=== PATIENT | female | born 1985 | race African-American/Black ===

== ENCOUNTER 2016-08-15 10:51 | Emergency (ER) | payer BC ==
[~2016-08-15] VITALS: Ht 182.9 cm; Wt 178.7 kg
[~2016-08-15 10:51] MED LIST: ALBU2.5V5 NEB; ATEN1TAB3 PO; BENZ100C PO; DICY10CA3 PO; DICY10CA53 PO; DOXY100T PO; GABA-586 PO; HYDR-971 PO; HYDR12.53 PO; HYDR50TA6 PO; IBUP800T2 PO; LOSA50TA6 PO; METO100T2 PO; MONT10TA9 PO; ONDA4TAB10 PO; OTHER; OXYC10TA PO; PANT40TA3 PO; PHEN37.53 PO; POTA20TA4 PO; PRED-220 PO; PRED50TA PO; PROAIR HFA8.5 GM INH; PROM25TA10 PO; TIZA4TAB PO; TRAM50TA PO; [UNRECOGNIZED DRUG - CODE] RC; [UNRECOGNIZED DRUG - OTHER]
[2016-08-15 11:26] LABS: NEG OBC UR NEG; POS OBC UR POS
[2016-08-15] MEDS ORDERED: IV NORMAL SALINE 1000ML BAG 1,000 ML IV SCH (11:59)
[2016-08-15] MEDS ORDERED: KETOROLAC TROMETHAMINE 30 MG/ML INJ. IV ONE (12:00)
[2016-08-15 12:17] LABS: BASO % 1 % (0-3); EOS % 2 % (0-3); HEMATOCRIT 44.3 % (36.0-47.0); HEMOGLOBIN 14.7 g/dL (12.0-15.5); LYMPH # 1.6 x10^3/uL (1.0-4.8); LYMPH % 26 % (24-48); MEAN CORPUSCULAR HEMOGLOBIN 29 pg (25-35); MEAN CORPUSCULAR HGB CONC 33 g/dL (31-37); MEAN CORPUSCULAR VOLUME 87 fL (79-100); MONO % 7 % (0-9); NEUT % 64 % (31-73); PLATELET COUNT 335 x10^3/uL (140-400); RED BLOOD COUNT 5.08 x10^6/uL (3.50-5.40); RED CELL DISTRIBUTION WIDTH 14.1 % (11.5-14.5); WHITE BLOOD COUNT 6.2 x10^3/uL (4.0-11.0)
[2016-08-15 12:22] VITALS: BP 127/70
[2016-08-15 12:27] LABS: CALCIUM 9.5 mg/dL (8.5-10.1); CREATININE 0.8 mg/dL (0.6-1.0); GFR 102.6
[2016-08-15 12:33] LABS: ALBUMIN 3.7 g/dL (3.4-5.0); ALBUMIN/GLOBULIN RATIO 0.9 (1.0-1.7); TOTAL BILIRUBIN 0.3 mg/dL (0.2-1.0); TOTAL PROTEIN 7.9 g/dL (6.4-8.2)
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
[2016-08-15] MEDS ORDERED: HYDROcodone/APAP 5/325MG 1 TAB TABLET PO ONE (14:15)
[2016-08-15] MEDS ORDERED: ONDA8TAB12 PO (14:28)
[2016-08-15] MEDS ORDERED: ONDANSETRON ODT 4 MG TAB.RAPDIS. PO ONE (14:30)
== END 2016-08-15 14:23 | disposition home or self-care (01) ==
LOC: ER 10:51
DX: B34.9 Viral infection, unspecified (principal); R51 Headache; M54.9 Dorsalgia, unspecified; J45.909 Unspecified asthma, uncomplicated; I10 Essential (primary) hypertension; K58.9 Irritable bowel syndrome, unspecified; Z87.01 Personal history of pneumonia (recurrent); Z90.49 Acquired absence of other specified parts of digestive tract; Z88.2 Allergy status to sulfonamides; Z88.1 Allergy status to other antibiotic agents; Z88.8 Allergy status to other drugs, medicaments and biological substances
CPT/HCPCS: 36415; 80053; 81025; 85027; 96361; 96374; 99284; J1885; J7030

== ENCOUNTER 2016-11-14 07:29 | Emergency (ER) | payer BC ==
[~2016-11-14] VITALS: Ht 182.9 cm; Wt 178.7 kg
[~2016-11-14 07:29] MED LIST changes: +IBUP800T19 PO; -IBUP800T2 PO; +ONDA8TAB12 PO
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
[2016-11-14 07:50] VITALS: BP 151/101
[2016-11-14 07:52] LABS: BILIRUBIN,URINE NEGATIVE (NEG); GLUCOSE,URINE NEGATIVE (NEG); NITRITE,URINE NEGATIVE (NEG); PROTEIN,URINE NEGATIVE (NEG-TRACE); UROBILINOGEN,URINE 0.2 mg/dL (0.2 mg/dL)
[2016-11-14] MEDS ORDERED: MORPHINE SULFATE 10 MG/ML VIAL. IV ONE (08:00)
[2016-11-14] MEDS ORDERED: KETOROLAC TROMETHAMINE 30 MG/ML INJ. IV ONE (08:00)
[2016-11-14] MEDS ORDERED: ONDANSETRON PF 4 MG/2 ML VIAL. IV ONE (08:00)
[2016-11-14] MEDS ORDERED: IV NORMAL SALINE 1000ML BAG 1,000 ML IV ONE (08:00)
[2016-11-14 08:08] LABS: BASO # 0.1 x10^3/uL (0.0-0.2); BASO % 1 % (0-3); EOS % 2 % (0-3); HEMATOCRIT 43.3 % (36.0-47.0); HEMOGLOBIN 14.8 g/dL (12.0-15.5); LYMPH # 2.1 x10^3/uL (1.0-4.8); LYMPH % 30 % (24-48); MEAN CORPUSCULAR HEMOGLOBIN 30 pg (25-35); MEAN CORPUSCULAR HGB CONC 34 g/dL (31-37); MEAN CORPUSCULAR VOLUME 86 fL (79-100); MONO % 7 % (0-9); NEUT % 60 % (31-73); PLATELET COUNT 339 x10^3/uL (140-400); RED BLOOD COUNT 5.01 x10^6/uL (3.50-5.40); RED CELL DISTRIBUTION WIDTH 13.2 % (11.5-14.5)
[2016-11-14 08:14] LABS: BACTERIA,URINE MANY /HPF (0-FEW); SQUAMOUS EPITHELIAL CELL,UR MANY /LPF
[2016-11-14 08:20] LABS: CALCIUM 9.6 mg/dL (8.5-10.1); CREATININE 0.7 mg/dL (0.6-1.0); GFR 119.7; POTASSIUM 3.9 mmol/L (3.5-5.1)
[2016-11-14 08:23] LABS: ALBUMIN 3.7 g/dL (3.4-5.0); ALBUMIN/GLOBULIN RATIO 0.9 (1.0-1.7); TOTAL BILIRUBIN 0.1 mg/dL (0.2-1.0); TOTAL PROTEIN 7.7 g/dL (6.4-8.2)
--- NOTE | 2016-11-14 08:39 | RAD ---
Exam performed: CT scan of the abdomen and pelvis without contrast. Clinical Indication: Left flank pain. Date of Service: 11/14/16 03/25/16 Technique: Contiguous helical acquisitions are obtained through the abdomen and pelvis without IV contrast. Sagittal and coronal reformatted images are obtained and reviewed. CT abdomen and pelvis findings: The lung bases are essentially clear. Visualized heart is normal. Lack of IV contrast limits evaluation of abdominal viscera, however the liver , spleen and pancreas are normal. Both adrenal glands and bilateral kidneys are normal in size without hydronephrosis or nephrolithiasis. Aorta is normal in caliber without aneurysm. The small and large bowel loops are nondilated and unremarkable. Scattered stool in the colon. Small ventral abdominal wall defect in the anterior abdominal wall containing omental fat. The visualized portion of the appendix is unremarkable. Majority changes are seen in the right lower quadrant Distal ureters are nondilated. Urinary bladder is decompressed and thick walled. [Uterus is anteverted. Tiny 2.3 cm cyst in the left ovary probably physiological.] No free or focal fluid collections are identified. Degenerative disc disease at L5-S1 Impression: 1. No acute intra-abdominal or pelvic process detected. No evidence of urolithiasis. 2. Status post cholecystectomy. 3. Small ventral abdominal wall defect in the anterior abdominal wall containing omental fat. PQRS Compliance Statement: One or more of the following individualized dose reduction techniques were utilized for this examination: 1. Automated exposure control 2. Adjustment of the mA and/or kV according to patient size 3. Use of iterative reconstruction technique
== END 2016-11-14 09:24 | disposition home or self-care (01) ==
LOC: ER 07:29
DX: G89.29 Other chronic pain (principal); M54.5 Low back pain; M54.2 Cervicalgia; I12.9 Hypertensive chronic kidney disease with stage 1 through stage 4 chronic kidney disease, or unspecified chronic kidney disease; N18.9 Chronic kidney disease, unspecified; J45.909 Unspecified asthma, uncomplicated; Z90.49 Acquired absence of other specified parts of digestive tract; K58.9 Irritable bowel syndrome, unspecified; Z87.440 Personal history of urinary (tract) infections; Z98.890 Other specified postprocedural states; Z88.2 Allergy status to sulfonamides; Z88.1 Allergy status to other antibiotic agents; Z88.8 Allergy status to other drugs, medicaments and biological substances
CPT/HCPCS: 36415; 74176; 80053; 81001; 81025; 83690; 85025; 87086; 96361; 96374; 96375; 99285; J1885; J2270; J2405; J7030

== ENCOUNTER 2017-02-04 06:38 | Inpatient (IN) | payer BC ==
[~2017-02-04] VITALS: Ht 182.9 cm; Wt 182.3 kg
--- NOTE | 2017-02-04 07:03 | PHYS DOC ---
Past Medical History Past Medical History: Asthma, Bronchitis, Hypertension, IBS, Pneumonia, Renal Failure, Urolithiasis, UTI, Other Additional Past Medical Histor: BACK PAIN Past Surgical History: Cholecystectomy, , Tonsillectomy, Other Additional Past Surgical Histo: adenoidectomy Alcohol Use: None Drug Use: None Adult General Chief Complaint Chief Complaint: Chest pain [facility] HPI Patient is a 31 year old -Algerian female and he was who presents with left-sided chest pain, shortness of breath. She states he symptoms started partially 5 days ago with her shortness of breath with a nonproductive cough and wheezing and she's been in her breathing treatments. She states yesterday around 6:30 PM she started coughing very hard and then had a pain in her left chest wall and points under her left breast and says it hurts a 7 out of 10 constantly and if she lays on or takes a deep breath it hurts a 10 out of 10. She states nothing makes the pain better from the 7 out of 10 laying still not putting pressure taking deep breaths keeps it from going to a 10 out of 10. She denies she's taken anything to help with her pain as of yet. She has been taking an [id number] cough suppressant and states she's been using her nebulizer every 4 hours. She states she can't lay flat because it makes her cough too much and she gets short of breath. She states she becomes very sweaty and short of breath with short distances of ambulation. She states she has a history of asthma and can't get into see her primary care physician until next week. She has a family history of heart disease but is unfamiliar with exactly what since her dad has a pacemaker and mom and dad both had coronary cast but unsure of the results and her brother last week at the age of 40 had a cardiac catheter. She denies a history of diabetes and states she's has high blood pressure and is on blood pressure medicine. She denies a history of smoking. Review of Systems Review of Systems Constitutional: Denies fever or chills [] Eyes: Denies change in visual acuity, redness, or eye pain [] HENT: Denies nasal congestion or sore throat [] Respiratory: As it for nonproductive cough and wheezing. Cardiovascular: No additional information not addressed in HPI [] GI: Denies abdominal pain, nausea, vomiting, bloody stools or diarrhea [] : Denies dysuria or hematuria [] Musculoskeletal: Denies back pain or joint pain [] Integument: Denies rash or skin lesions [] Neurologic: Denies headache, focal weakness or sensory changes [] Endocrine: Denies polyuria or polydipsia [] All other systems were reviewed and found to be within normal limits, except as documented in this note. Current Medications Current Medications Current Medications Medications (Trade) Dose Ordered Sig/Arturo Start Time Stop Time Status Last Admin Dose Admin Albuterol/ Ipratropium (Duoneb) 3 ml Q6HRS PRN 02/04/17 09:45 UNV Aspirin (Milka Aspirin) 325 mg 1X ONCE 02/04/17 09:45 02/04/17 09:46 UNV Methylprednisolone Sodium Succinate (SOLU-Medrol 125MG VIAL) 125 mg 1X ONCE 02/04/17 07:45 02/04/17 07:46 DC 02/04/17 07:53 125 MG Morphine Sulfate 2 mg PRN Q2HR PRN 02/04/17 09:45 02/05/17 09:44 Ondansetron HCl (Zofran) 4 mg PRN Q8HRS PRN 02/04/17 09:45 02/05/17 09:44 Allergies Allergies Allergies Coded Allergies Type Severity Reaction Last Updated Verified loperamide Allergy Severe rash, tongue swelling 11/14/16 Yes Sulfa (Sulfonamide Antibiotics) Allergy Intermediate Hives 11/14/16 Yes amoxicillin Allergy Intermediate Hives 11/14/16 Yes vancomycin Allergy Intermediate Hives 11/14/16 Yes Physical Exam Physical Exam Constitutional: Well developed, well nourished, no acute distress, non-toxic appearance. [] HENT: Normocephalic, atraumatic, bilateral external ears normal, oropharynx moist, no oral exudates, nose normal. [] Eyes: PERRLA, EOMI, conjunctiva normal, no discharge. [] Neck: Normal range of motion, no tenderness, supple, no stridor. [] Cardiovascular:Heart rate regular rhythm, no murmur [] Lungs & Thorax: Bilateral breath sounds decreased at the bases with mild wheezing in the right hemithorax, tender to palpation under the left breast without any obvious deformities noted, no rashes appreciated Abdomen: Bowel sounds normal, soft, no tenderness, no masses, no pulsatile masses. [] Skin: Warm, dry, no erythema, no rash. [] Back: No tenderness, no CVA tenderness. [] Extremities: No tenderness, no cyanosis, no clubbing, ROM intact, no edema. [] Neurologic: Alert and oriented X 3, normal motor function, normal sensory function, no focal deficits noted. [] Psychologic: Affect normal, judgement normal, mood normal. [] Current Patient Data Vital Signs Vital Signs Date Time Temp Pulse Resp B/P (MAP) Pulse Ox O2 Delivery O2 Flow Rate FiO2 02/04/17 09:39 22 02/04/17 09:20 98 117/74 (88) 97 Room Air 02/04/17 06:52 98.0 98.0 Lab Values Laboratory Tests Test 02/04/17 06:40 02/04/17 07:40 02/04/17 07:47 Urine Collection Type Unknown Urine Color Yellow Urine Clarity Cloudy Urine pH 6.0 Urine Specific [place] >=1.030 Urine Protein Negative mg/dL (NEG-TRACE) Urine Glucose (UA) Negative mg/dL (NEG) Urine Ketones (Stick) Negative mg/dL (NEG) Urine Blood Small (NEG) Urine Nitrite Negative (NEG) Urine Bilirubin Negative (NEG) Urine Urobilinogen Dipstick 0.2 mg/dL (0.2 mg/dL) Urine Leukocyte Esterase Negative (NEG) Urine RBC 0 /HPF (0-2) Urine WBC Occ /HPF (0-4) Urine Squamous Epithelial Cells Many /LPF Urine Bacteria Many /HPF (0-FEW) Urine Mucus Slight /LPF White Blood Count 6.4 x10^3/uL (4.0-11.0) Red Blood Count 5.10 x10^6/uL (3.50-5.40) Hemoglobin 14.7 g/dL (12.0-15.5) Hematocrit 44.5 % (36.0-47.0) Mean Corpuscular Volume 87 fL (79-100) Mean Corpuscular Hemoglobin 29 pg (25-35) Mean Corpuscular Hemoglobin Concent 33 g/dL (31-37) Red Cell Distribution Width 13.8 % (11.5-14.5) Platelet Count 330 x10^3/uL (140-400) Neutrophils (%) (Auto) 55 % (31-73) Lymphocytes (%) (Auto) 34 % (24-48) Monocytes (%) (Auto) 8 % (0-9) Eosinophils (%) (Auto) 2 % (0-3) Basophils (%) (Auto) 1 % (0-3) Neutrophils # (Auto) 3.6 x10^3uL (1.8-7.7) Lymphocytes # (Auto) 2.2 x10^3/uL (1.0-4.8) Monocytes # (Auto) 0.5 x10^3/uL (0.0-1.1) Eosinophils # (Auto) 0.1 x10^3/uL (0.0-0.7) Basophils # (Auto) 0.1 x10^3/uL (0.0-0.2) Prothrombin Time 12.3 SEC (11.7-14.0) Prothrombin Time INR 1.0 (0.8-1.1) D-Dimer (Anna) 0.62 ug/mlFEU (0.00-0.50) H Sodium Level 140 mmol/L (136-145) Potassium Level 3.7 mmol/L (3.5-5.1) Chloride Level 103 mmol/L (98-107) Carbon Dioxide Level 24 mmol/L (21-32) Anion Gap 13 (6-14) Blood Urea Nitrogen 12 mg/dL (7-20) Creatinine 0.8 mg/dL (0.6-1.0) Estimated GFR (Cockcroft-Gault) 101.9 Glucose Level 96 mg/dL (70-99) Calcium Level 9.5 mg/dL (8.5-10.1) Magnesium Level 1.9 mg/dL (1.8-2.4) Total Bilirubin 0.2 mg/dL (0.2-1.0) Direct Bilirubin < 0.1 mg/dL (0.0-0.2) Aspartate Amino Transferase (AST) 26 U/L (15-37) Alanine Aminotransferase (ALT) 26 U/L (14-59) Alkaline Phosphatase 62 U/L (46-116) Creatine Kinase 639 U/L (26-192) H Creatine Kinase MB (Mass) 9.1 ng/mL (0.0-3.6) H Creatine Kinase MB Relative Index 1.4 % (0-4) Troponin I Quantitative < 0.017 ng/mL (0.000-0.055) JQ-Oky-I-Type Natriuretic Peptide 14 pg/mL (0-124) Total Protein 8.0 g/dL (6.4-8.2) Albumin 3.8 g/dL (3.4-5.0) Lipase 94 U/L (73-393) Thyroid Stimulating Hormone (TSH) 0.821 uIU/mL (0.358-3.74) POC Urine HCG, Qualitative Hcg negative (Negative) Laboratory Tests 02/04/17 07:40 Laboratory Tests 02/04/17 07:40 EKG EKG EKG shows sinus rhythm with rate of 98 bpm with T-wave inversions located in lead 3, less than 1 mm elevation noted in V2 V3, no reciprocal is noted, normal axis, QTC 451 ms, EKG similar to one performed on February 01, 2016 except for it had T-wave inversions in aVF in addition. As interpreted by me. Radiology/Procedures Radiology/Procedures [facility] [address] [place] [address] IMAGING REPORT Signed PATIENT: JUSTINA CORBETT ACCOUNT: [id number] : 1985 LOCATION: ER AGE: 31 SEX: F EXAM STATUS: REG ER ORD. PHYSICIAN: KOFI WAGNER MD REASON: soa PROCEDURE: PORTABLE CHEST 1V AP PORTABLE CHEST Clinical Indication: soa. Comparison: AP chest 02/01/2016. Findings: The cardiomediastinal silhouette is normal. Lungs are clear. There is no pneumothorax. No pleural effusion is appreciated. There is no acute bone abnormality. IMPRESSION: No acute cardiopulmonary process. DICTATED and SIGNED BY: RANDY CARDENAS MD DATE: 02/04/17 7243 CC: KOFI WAGNER MD; Lore ERICKSON MD ~ Impressions: Chest discomfort Shortness of breath Asthma Obesity Hypertension Course & Med Decision Making Course & Med Decision Making Pertinent Labs and Imaging studies reviewed. (See chart for details) Chest x-ray does not show any acute abnormality's. She felt better after IV Solu -Medrol and DuoNeb nebs. EKG shows T-wave inversions in lead 3, this is similar to before. I do not appreciate any ecchymosis or abnormalities over her left side of her chest. D-dimer was pending at the time I spoke with Dr. Lai. I spoke with Dr. Lai is agreed to admit the patient. Since the d-dimer came back elevated after I spoke with Dr. Lai I have ordered a CT angiogram to rule out a PE. Patient's in stable condition at this time being transferred the floor. I have informed Dr. Lai of EKG findings, chest x-ray, labs and physical exam. I have ordered an aspirin for the patient. Dragon Disclaimer Dragon Disclaimer This electronic medical record was generated, in whole or in part, using a voice recognition dictation system. Departure Departure Impression: Primary Impression: Asthma exacerbation Additional Impression: Chest pain Disposition: ADMITTED INPATIENT Admitting Physician: Camilla Ayala Condition: STABLE Referrals: Lore ERICKSON MD (PCP) Problem Qualifiers KOFI WAGNER MD Feb 04, 2017 07:03
[2017-02-04] MEDS ORDERED: methylPREDNISolone SOD SUCC PF 125 MG/2 ML VIAL. IV ONE (07:45)
[2017-02-04] MEDS ORDERED: IPRATRPIUM/ALBUTEROL 0.5/2.5MG 3 ML NEBU. NEB ONE ×2 (07:45→10:30)
--- NOTE | 2017-02-04 07:46 | RAD ---
AP PORTABLE CHEST Clinical Indication: soa. Comparison: AP chest 02/01/2016. Findings: The cardiomediastinal silhouette is normal. Lungs are clear. There is no pneumothorax. No pleural effusion is appreciated. There is no acute bone abnormality. IMPRESSION: No acute cardiopulmonary process.
--- NOTE | 2017-02-04 07:47 | EKG ---
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
[2017-02-04] MEDS: MORPHINE SULFATE 2 MG/ML DISP.SYRIN. IV/SQ PRN ×2 (07:55→09:39)
[2017-02-04 08:04] LABS: BASO # 0.1 x10^3/uL (0.0-0.2); BASO % 1 % (0-3); EOS % 2 % (0-3); HEMATOCRIT 44.5 % (36.0-47.0); HEMOGLOBIN 14.7 g/dL (12.0-15.5); LYMPH # 2.2 x10^3/uL (1.0-4.8); LYMPH % 34 % (24-48); MEAN CORPUSCULAR HEMOGLOBIN 29 pg (25-35); MEAN CORPUSCULAR HGB CONC 33 g/dL (31-37); MEAN CORPUSCULAR VOLUME 87 fL (79-100); MONO % 8 % (0-9); NEUT % 55 % (31-73); PLATELET COUNT 330 x10^3/uL (140-400); RED CELL DISTRIBUTION WIDTH 13.8 % (11.5-14.5); WHITE BLOOD COUNT 6.4 x10^3/uL (4.0-11.0)
[2017-02-04 08:16] LABS: ANION GAP 13 (6-14); BLOOD UREA NITROGEN 12 mg/dL (7-20); CALCIUM 9.5 mg/dL (8.5-10.1); CARBON DIOXIDE 24 mmol/L (21-32); CHLORIDE 103 mmol/L (98-107); CREATININE 0.8 mg/dL (0.6-1.0); GFR 101.9; GLUCOSE 96 mg/dL (70-99); POTASSIUM 3.7 mmol/L (3.5-5.1); SODIUM 140 mmol/L (136-145)
[2017-02-04 08:20] LABS: BILIRUBIN,URINE NEGATIVE (NEG); GLUCOSE,URINE NEGATIVE (NEG); NITRITE,URINE NEGATIVE (NEG); PROTEIN,URINE NEGATIVE (NEG-TRACE); UROBILINOGEN,URINE 0.2 mg/dL (0.2 mg/dL)
[2017-02-04 08:22] LABS: ALBUMIN 3.8 g/dL (3.4-5.0); ALK PHOS 62 U/L (46-116); ALT (SGPT) 26 U/L (14-59); AST (SGOT) 26 U/L (15-37); DIRECT BILIRUBIN < 0.1 mg/dL (0.0-0.2); MAGNESIUM 1.9 mg/dL (1.8-2.4); TOTAL BILIRUBIN 0.2 mg/dL (0.2-1.0)
[2017-02-04 08:25] LABS: PROTHROMBIN TIME PATIENT 12.3 SEC (11.7-14.0)
[2017-02-04 08:26] LABS: CKMB MASS 9.1 ng/mL (0.0-3.6)
[2017-02-04 09:06] LABS: BACTERIA,URINE MANY /HPF (0-FEW); RBC,URINE 0 /HPF (0-2); SQUAMOUS EPITHELIAL CELL,UR MANY /LPF; WBC,URINE OCC /HPF (0-4)
[2017-02-04] MEDS ORDERED: ONDANSETRON PF 4 MG/2 ML VIAL. IV PRN (09:45)
[2017-02-04] MEDS ORDERED: MORPHINE SULFATE 2 MG/ML DISP.SYRIN. IV PRN (09:45)
[2017-02-04] MEDS ORDERED: CONTRAST GIVEN MC PRN (10:00)
[2017-02-04] MEDS ORDERED: ASPIRIN 325 MG TABLET PO ONE (10:15)
[2017-02-04] MEDS ORDERED: IOHEXOL 300 MG/ML 100ML VIAL. IV ONE (10:30)
--- NOTE | 2017-02-04 10:37 | RAD ---
PQRS Compliance Statement: One or more of the following individualized dose reduction techniques were utilized for this examination: 1. Automated exposure control 2. Adjustment of the mA and/or kV according to patient size 3. Use of iterative reconstruction technique CT CHEST WITH CONTRAST, PULMONARY ANGIOGRAM History: soa, chest pain with elevated ddimer Comparison: CT chest with contrast, 02/15/2015 Technique: Helical CT of the chest was performed after the administration of 75 cc of Omnipaque 300 intravenous contrast according to PE protocol. 3-D MIP coronal reconstruction was performed to better evaluate the pulmonary arteries. Findings: Pulmonary arteries are adequately opacified to the segmental pulmonary artery level. There is no evidence of pulmonary embolism. Subsegmental pulmonary arteries are not well evaluated. Pulsation artifact of the pulmonary trunk. There is no thoracic aortic dissection. There are stable mildly enlarged right and left hilar lymph nodes. Thyroid is symmetric. Stable AP window lymph node. Cardiac size upper limits of normal. No pericardial effusion. There is no pleural effusion. The central airways are patent. There is respiratory motion artifact. Mosaic attenuation pattern of groundglass opacities bilaterally. No consolidation. Cholecystectomy. No acute bone abnormality. IMPRESSION: 1. There is no CT evidence of pulmonary embolus. 2. Stable hilar and mediastinal lymph nodes. 3. Mosaic attenuation pattern in the lungs. Common etiology is small airways disease.
[2017-02-04] MEDS ORDERED: HYDR50TA6 PO (10:55)
[2017-02-04] MEDS ORDERED: HYDR-2762 PO (10:55)
[2017-02-04 11:00] VITALS: BP 149/74
[2017-02-04] MEDS ORDERED: MORPHINE SULFATE 4 MG/ML DISP.SYRIN. IV/SQ PRN (12:45)
[2017-02-04] MEDS: MORPHINE SULFATE 4 MG/ML DISP.SYRIN. IV PRN ×3 (12:45→20:41)
[2017-02-04] MEDS ORDERED: ALBUTEROL SULFATE 2.5 MG/3 ML NEBU. NEB PRN (13:30)
--- NOTE | 2017-02-04 13:34 | PDOC1 ---
History and Physical Date of Admission Date of Admission DATE: 02/04/17 Identification/Chief Complaint Chief Complaint Left sided chest pain Problems: Source Source: Patient History of Present Illness History of Present Illness Pt states that she started to have a cough yesterday and noticed some left sided chest pain. Pain is constant. Worse with breathing, movement and touching it. Pt's cough is nonproductive. She has had some wheezing. Past Medical History Cardiovascular: HTN Pulmonary: Asthma GI: GERD Heme/Onc: No pertinent hx Hepatobiliary: No pertinent hx Psych: No pertinent hx Musculoskeletal: Osteoarthritis Rheumatologic: No pertinent hx Infectious disease: No pertinent hx ENT: No pertinent hx Renal/: No pertinent hx Endocrine: No pertinent hx Dermatology: Eczema Past Surgical History Past Surgical History: Cholecystectomy, , Tonsillectomy Family History Family History: Diabetes, Hypertension Social History Smoke: <1 pack per day ALCOHOL: none Drugs: None Current Problem List Problem List Problems Medical Problems: (1) Asthma exacerbation Status: Acute (2) Chest pain Status: Acute Problems: Current Medications Current Medications Current Medications Morphine Sulfate 2 mg PRN Q15MIN PRN IV/SQ PAIN GREATER THAN 3/10 Last administered on 02/04/17 09:39; Start 02/04/17 at 07:45; Stop 02/04/17 at 12 :37; Status DC Albuterol/ Ipratropium (Duoneb) 3 ml 1X ONCE NEB Last administered on 07:23; Start 02/04/17 at 07:45; Stop 02/04/17 at 07:46; Status DC Methylprednisolone Sodium Succinate (SOLU-Medrol 125MG VIAL) 125 mg 1X ONCE IV Last administered on 02/04/17 07:53; Start 02/04/17 at 07:45; Stop at 07:46; Status DC Ondansetron HCl (Zofran) 4 mg PRN Q8HRS PRN IV NAUSEA/VOMITING; Start at 09:45; Stop 02/05/17 at 09:44 Morphine Sulfate 2 mg PRN Q2HR PRN IV PAIN; Start 02/04/17 at 09:45; Stop at 12:36; Status DC Albuterol/ Ipratropium (Duoneb) 3 ml 1X ONCE NEB Last administered on 12:00; Start 02/04/17 at 10:30; Stop 02/04/17 at 10:31; Status DC Aspirin (Milka Aspirin) 325 mg 1X ONCE PO Last administered on 02/04/17 10: 23; Start 02/04/17 at 10:15; Stop 02/04/17 at 10:16; Status DC Iohexol (Omnipaque 300 Mg/ml) 75 ml 1X ONCE IV Last administered on 10:14; Start 02/04/17 at 10:30; Stop 02/04/17 at 10:31; Status DC Info (Do NOT chart on this entry -- for MONITORING) 1 each PRN DAILY PRN MC SEE COMMENTS; Start 02/04/17 at 10:00; Stop 02/06/17 at 09:59 Morphine Sulfate 2 mg PRN Q2HR PRN IV PAIN Last administered on 02/04/17 12: 45; Start 02/04/17 at 12:36; Stop 02/05/17 at 09:44 Morphine Sulfate 2 mg PRN Q15MIN PRN IV/SQ PAIN GREATER THAN 3/10; Start 02/04 at 12:45; Stop 02/05/17 at 07:44 Active Scripts Active Reported Hydrocodone-Apap 7.5-325 (Hydrocodone Bit/Acetaminophen) 1 Each Tablet 1 Tab PO PRN Q6HRS PRN Hydrochlorothiazide Tablet (Hydrochlorothiazide) 50 Mg Tablet 1 Tab PO BID Allergies Allergies: Coded Allergies: loperamide (Verified Allergy, Severe, rash, tongue swelling, 11/14/16) Sulfa (Sulfonamide Antibiotics) (Verified Allergy, Intermediate, Hives, ) amoxicillin (Verified Allergy, Intermediate, Hives, 11/14/16) vancomycin (Verified Allergy, Intermediate, Hives, 11/14/16) ROS General: YES: Chills, Night Sweats PSYCHOLOGICAL ROS: No: Anxiety, Depression Eyes: No Decreased vision, No Eye Pain HEENT: No: Visual Changes, Nasal congestion, Sore Throat ALLERGY AND IMMUNOLOGY: No: Hives Hematological and Lymphatic: No: Bleeding Problems, Blood Clots, Brusing Respiratory: YES: Cough, Wheezing, No: Hemoptysis, Shortness of breath, Sputum Changes Cardiovascular: yes Chest Pain, No Palpitations, No Edema Gastrointestinal: Yes Nausea, No Vomiting, No Abdominal Pain, No Diarrhea, No Constipation Genitourinary: No Dysuria, No Urgency Musculoskeletal: Yes Joint Pain, Yes Muscle Pain Neurological: No Impaired Coord/balance, No Numbness/Tingling, No Tremors Skin: No Rash, No Skin Lesion Changes Physical Exam General: Alert, Oriented X3, Cooperative, No acute distress HEENT: Atraumatic, PERRLA, EOMI, Mucous membr. moist/pink Lungs: Clear to auscultation, Normal air movement Heart: RRR, no rubs, no gallops, no murmurs Abdomen: Normal bowel sounds, Soft, No tenderness, No hepatosplenomegaly Extremities: No clubbing, No cyanosis, No edema Skin: No rashes, No breakdown, No significant lesion Neuro: Normal speech, Cranial nerves 3-12 NL Psych/Mental Status: Mental status NL, Mood NL Vitals Vitals Vital Signs Date Time Temp Pulse Resp B/P (MAP) Pulse Ox O2 Delivery O2 Flow Rate FiO2 02/04/17 12:45 96 Room Air 02/04/17 09:50 94 17 131/78 (95) 02/04/17 06:52 98.0 98.0 Labs Labs Laboratory Tests Test 02/04/17 06:40 02/04/17 07:40 02/04/17 07:47 Urine Collection Type Unknown Urine Color Yellow Urine Clarity Cloudy Urine pH 6.0 Urine Specific [place] >=1.030 Urine Protein Negative mg/dL (NEG-TRACE) Urine Glucose (UA) Negative mg/dL (NEG) Urine Ketones (Stick) Negative mg/dL (NEG) Urine Blood Small (NEG) Urine Nitrite Negative (NEG) Urine Bilirubin Negative (NEG) Urine Urobilinogen Dipstick 0.2 mg/dL (0.2 mg/dL) Urine Leukocyte Esterase Negative (NEG) Urine RBC 0 /HPF (0-2) Urine WBC Occ /HPF (0-4) Urine Squamous Epithelial Cells Many /LPF Urine Bacteria Many /HPF (0-FEW) Urine Mucus Slight /LPF White Blood Count 6.4 x10^3/uL (4.0-11.0) Red Blood Count 5.10 x10^6/uL (3.50-5.40) Hemoglobin 14.7 g/dL (12.0-15.5) Hematocrit 44.5 % (36.0-47.0) Mean Corpuscular Volume 87 fL (79-100) Mean Corpuscular Hemoglobin 29 pg (25-35) Mean Corpuscular Hemoglobin Concent 33 g/dL (31-37) Red Cell Distribution Width 13.8 % (11.5-14.5) Platelet Count 330 x10^3/uL (140-400) Neutrophils (%) (Auto) 55 % (31-73) Lymphocytes (%) (Auto) 34 % (24-48) Monocytes (%) (Auto) 8 % (0-9) Eosinophils (%) (Auto) 2 % (0-3) Basophils (%) (Auto) 1 % (0-3) Neutrophils # (Auto) 3.6 x10^3uL (1.8-7.7) Lymphocytes # (Auto) 2.2 x10^3/uL (1.0-4.8) Monocytes # (Auto) 0.5 x10^3/uL (0.0-1.1) Eosinophils # (Auto) 0.1 x10^3/uL (0.0-0.7) Basophils # (Auto) 0.1 x10^3/uL (0.0-0.2) Prothrombin Time 12.3 SEC (11.7-14.0) Prothromb Time International Ratio 1.0 (0.8-1.1) D-Dimer (Anna) 0.62 ug/mlFEU (0.00-0.50) Sodium Level 140 mmol/L (136-145) Potassium Level 3.7 mmol/L (3.5-5.1) Chloride Level 103 mmol/L (98-107) Carbon Dioxide Level 24 mmol/L (21-32) Anion Gap 13 (6-14) Blood Urea Nitrogen 12 mg/dL (7-20) Creatinine 0.8 mg/dL (0.6-1.0) Estimated GFR (Cockcroft-Gault) 101.9 Glucose Level 96 mg/dL (70-99) Calcium Level 9.5 mg/dL (8.5-10.1) Magnesium Level 1.9 mg/dL (1.8-2.4) Total Bilirubin 0.2 mg/dL (0.2-1.0) Direct Bilirubin < 0.1 mg/dL (0.0-0.2) Aspartate Amino Transf (AST/SGOT) 26 U/L (15-37) Alanine Aminotransferase (ALT/SGPT) 26 U/L (14-59) Alkaline Phosphatase 62 U/L (46-116) Creatine Kinase 639 U/L (26-192) Creatine Kinase MB (Mass) 9.1 ng/mL (0.0-3.6) Creatine Kinase MB Relative Index 1.4 % (0-4) Troponin I Quantitative < 0.017 ng/mL (0.000-0.055) OX-Zna-D-Type Natriuretic Peptide 14 pg/mL (0-124) Total Protein 8.0 g/dL (6.4-8.2) Albumin 3.8 g/dL (3.4-5.0) Lipase 94 U/L (73-393) Thyroid Stimulating Hormone (TSH) 0.821 uIU/mL (0.358-3.74) Bedside Urine HCG, Qualitative Hcg negative (Negative) Laboratory Tests Test 02/04/17 06:40 02/04/17 07:40 02/04/17 07:47 Urine Collection Type Unknown Urine Color Yellow Urine Clarity Cloudy Urine pH 6.0 Urine Specific [place] >=1.030 Urine Protein Negative mg/dL (NEG-TRACE) Urine Glucose (UA) Negative mg/dL (NEG) Urine Ketones (Stick) Negative mg/dL (NEG) Urine Blood Small (NEG) Urine Nitrite Negative (NEG) Urine Bilirubin Negative (NEG) Urine Urobilinogen Dipstick 0.2 mg/dL (0.2 mg/dL) Urine Leukocyte Esterase Negative (NEG) Urine RBC 0 /HPF (0-2) Urine WBC Occ /HPF (0-4) Urine Squamous Epithelial Cells Many /LPF Urine Bacteria Many /HPF (0-FEW) Urine Mucus Slight /LPF White Blood Count 6.4 x10^3/uL (4.0-11.0) Red Blood Count 5.10 x10^6/uL (3.50-5.40) Hemoglobin 14.7 g/dL (12.0-15.5) Hematocrit 44.5 % (36.0-47.0) Mean Corpuscular Volume 87 fL (79-100) Mean Corpuscular Hemoglobin 29 pg (25-35) Mean Corpuscular Hemoglobin Concent 33 g/dL (31-37) Red Cell Distribution Width 13.8 % (11.5-14.5) Platelet Count 330 x10^3/uL (140-400) Neutrophils (%) (Auto) 55 % (31-73) Lymphocytes (%) (Auto) 34 % (24-48) Monocytes (%) (Auto) 8 % (0-9) Eosinophils (%) (Auto) 2 % (0-3) Basophils (%) (Auto) 1 % (0-3) Neutrophils # (Auto) 3.6 x10^3uL (1.8-7.7) Lymphocytes # (Auto) 2.2 x10^3/uL (1.0-4.8) Monocytes # (Auto) 0.5 x10^3/uL (0.0-1.1) Eosinophils # (Auto) 0.1 x10^3/uL (0.0-0.7) Basophils # (Auto) 0.1 x10^3/uL (0.0-0.2) Prothrombin Time 12.3 SEC (11.7-14.0) Prothromb Time International Ratio 1.0 (0.8-1.1) D-Dimer (Anna) 0.62 ug/mlFEU (0.00-0.50) Sodium Level 140 mmol/L (136-145) Potassium Level 3.7 mmol/L (3.5-5.1) Chloride Level 103 mmol/L (98-107) Carbon Dioxide Level 24 mmol/L (21-32) Anion Gap 13 (6-14) Blood Urea Nitrogen 12 mg/dL (7-20) Creatinine 0.8 mg/dL (0.6-1.0) Estimated GFR (Cockcroft-Gault) 101.9 Glucose Level 96 mg/dL (70-99) Calcium Level 9.5 mg/dL (8.5-10.1) Magnesium Level 1.9 mg/dL (1.8-2.4) Total Bilirubin 0.2 mg/dL (0.2-1.0) Direct Bilirubin < 0.1 mg/dL (0.0-0.2) Aspartate Amino Transf (AST/SGOT) 26 U/L (15-37) Alanine Aminotransferase (ALT/SGPT) 26 U/L (14-59) Alkaline Phosphatase 62 U/L (46-116) Creatine Kinase 639 U/L (26-192) Creatine Kinase MB (Mass) 9.1 ng/mL (0.0-3.6) Creatine Kinase MB Relative Index 1.4 % (0-4) Troponin I Quantitative < 0.017 ng/mL (0.000-0.055) OE-Njc-I-Type Natriuretic Peptide 14 pg/mL (0-124) Total Protein 8.0 g/dL (6.4-8.2) Albumin 3.8 g/dL (3.4-5.0) Lipase 94 U/L (73-393) Thyroid Stimulating Hormone (TSH) 0.821 uIU/mL (0.358-3.74) Bedside Urine HCG, Qualitative Hcg negative (Negative) VTE Prophylaxis Ordered VTE Prophylaxis Devices: Yes VTE Pharmacological Prophylaxi: No Assessment/Plan Assessment/Plan Pt is a 31yo AAF admitted for left sided chest pain 1)Chest pain- likely 2/2 pleuritis. Cardiac enzymes trending. Pt being treated for asthma exacerbation. Ddimer elevated with normal CTA Chest 2)Asthma exacerbation- pt continued on breathing treatments and started on Prednisone. Likely D/C in the am 3)HTN- will resume pt's Hydralazine 50mg BID CORDELIA KIRBY MD Feb 04, 2017 13:34
[2017-02-04] MEDS: HYDROcodone/APAP 7.5/325MG 1 TAB TABLET PO PRN (14:27)
[2017-02-04] MEDS: predniSONE 20 MG TABLET PO SCH (14:27)
[2017-02-04 14:59] VITALS: BP 149/83
[2017-02-04] MEDS: NYSTATIN TOPICAL POWDER 15GM BOTTLE. TP SCH (17:17)
[2017-02-04] MEDS ORDERED: FLU VACC QS2017-18 (36MOS+)/PF 0.5 ML SYRINGE. VAX IM ONE (18:00)
[2017-02-04 19:00] VITALS: BP 148/76
[2017-02-04 22:50] VITALS: BP 119/60
[2017-02-05] MEDS: HYDROcodone/APAP 7.5/325MG 1 TAB TABLET PO PRN ×2 (00:12→10:37)
[2017-02-05 03:00] VITALS: BP 131/83
[2017-02-05] MEDS: MORPHINE SULFATE 4 MG/ML DISP.SYRIN. IV PRN ×2 (03:07→07:46)
[2017-02-05 05:30] LABS: BASO % 0 % (0-3); EOS % 0 % (0-3); HEMATOCRIT 42.3 % (36.0-47.0); HEMOGLOBIN 13.8 g/dL (12.0-15.5); LYMPH # 1.3 x10^3/uL (1.0-4.8); LYMPH % 16 % (24-48); MEAN CORPUSCULAR HEMOGLOBIN 29 pg (25-35); MEAN CORPUSCULAR HGB CONC 33 g/dL (31-37); MEAN CORPUSCULAR VOLUME 88 fL (79-100); MONO % 6 % (0-9); NEUT % 77 % (31-73); PLATELET COUNT 308 x10^3/uL (140-400); RED BLOOD COUNT 4.81 x10^6/uL (3.50-5.40); RED CELL DISTRIBUTION WIDTH 13.8 % (11.5-14.5); WHITE BLOOD COUNT 8.3 x10^3/uL (4.0-11.0)
[2017-02-05 05:59] LABS: CALCIUM 9.6 mg/dL (8.5-10.1); CREATININE 0.7 mg/dL (0.6-1.0); GFR 118.9; POTASSIUM 4.3 mmol/L (3.5-5.1)
[2017-02-05 07:00] VITALS: BP 125/87
[2017-02-05] MEDS: predniSONE 20 MG TABLET PO SCH (07:46)
[2017-02-05] MEDS: NYSTATIN TOPICAL POWDER 15GM BOTTLE. TP SCH (07:47)
[2017-02-05] MEDS ORDERED: METO25TA4 PO (09:19)
[2017-02-05] MEDS ORDERED: HYDR-2869 PO (09:19)
[2017-02-05] MEDS ORDERED: PRED20TA PO (09:19)
[2017-02-05] MEDS ORDERED: CYCL5TAB PO (09:19)
--- NOTE | 2017-02-05 09:25 | PDOC3 ---
Discharge Summary* Date of Admission: Feb 04, 2017 Date of Discharge: Feb 05, 2017 Admitting Diagnosis Problems Medical Problems: (1) Asthma exacerbation Status: Acute (2) Chest pain Status: Acute Problems: Final Diagnosis Chest pain- musculoskeletal, Asthma exacerbation, HTN CONSULTS None Procedures CXR- WNL CT Chest- no pulmonary embolism, mosaic attenuation pattern in lungs (common etiology is small airway disease) Brief Hospital Course Pt is a 31yo AAF admitted for left sided chest pain 1)Chest pain- musculoskeletal in nature. Cardiac enzymes X3 WNL. Pt being treated for asthma exacerbation. Ddimer elevated with normal CTA Chest 2)Asthma exacerbation- pt continued on breathing treatments and started on Prednisone. D/C today 3)HTN- pt resumed on Hydralazine 50mg BID, requested Bblocker for heart rate 4)Myalgias- pt started on flexeril Disposition/Orders: D/C to Home CONDITION AT DISCHARGE: Improved, Stable Diet: Cardiac Scheduled Cyclobenzaprine Hcl (Cyclobenzaprine Hcl), 1 TAB PO TID Hydralazine Hcl (Hydralazine Hcl), 50 MG PO BID Metoprolol Tartrate (Metoprolol Tartrate), 1 TAB PO BID Prednisone (Prednisone), 50 MG PO DAILY Scheduled PRN Hydrocodone Bit/Acetaminophen (Hydrocodone-Apap 7.5-325 ), 1 TAB PO PRN Q6HRS PRN for PAIN, (Reported) Discontinued Medications Hydrochlorothiazide (Hydrochlorothiazide Tablet), 1 TAB PO BID, (Reported) Hydrocodone/Apap 5-325 ([place] 5-325 Tablet), 1 TAB PO PRN Q6HRS PRN for PAIN, ( Reported) Ibuprofen (Ibuprofen), 800 MG PO TID, (Reported) Prednisone (Prednisone), 60 MG PO DAILY, (Reported) Prednisone (Prednisone), 50 MG PO DAILY, (Reported) Prednisone (Prednisone), 40 MG PO DAILY, (Reported) Prednisone (Prednisone), 30 MG PO DAILY, (Reported) Prednisone (Prednisone), 20 MG PO DAILY, (Reported) Prednisone (Prednisone), 10 MG PO DAILY, (Reported) Tizanidine Hcl (Tizanidine Hcl), 4 MG PO TID PRN for MUSCLE SPASMS, (Reported) PCP Follow up with Dr. Peter in 7-10 days Time Spent Total time spent with patient [] minutes for coordination of care, counseling, and education. CORDELIA KIRBY MD Feb 05, 2017 09:25
[2017-02-05] MEDS ORDERED: CYCLOBENZAPRINE 10 MG TABLET. PO PRN (09:30)
[2017-02-05] MEDS ORDERED: METOPROLOL TART IMMED RELEASE 25 MG TABLET. PO SCH (10:00)
[2017-02-05 10:36] VITALS: BP 131/83
== END 2017-02-05 11:11 | disposition home or self-care (01) | DRG 313 ==
LOC: ER 06:38 → 5 NORTH 08:30
PROVIDERS: ADMIT Family Medicine; ATTEND Family Medicine
DX: R07.89 Other chest pain (principal); J45.901 Unspecified asthma with (acute) exacerbation; F17.210 Nicotine dependence, cigarettes, uncomplicated; I10 Essential (primary) hypertension; K21.9 Gastro-esophageal reflux disease without esophagitis; K58.9 Irritable bowel syndrome, unspecified; E66.9 Obesity, unspecified; Z68.43 Body mass index [BMI] 50.0-59.9, adult; Z82.49 Family history of ischemic heart disease and other diseases of the circulatory system; Z87.442 Personal history of urinary calculi; Z83.3 Family history of diabetes mellitus
CPT/HCPCS: 36415; 71010; 71275; 80048; 80076; 81001; 81025; 82553; 83690; 83735; 83880; 84443; 84484; 85025; 85379; 85610; 87086; 90686; 93005; 94250; 94640; 96374; 96375; 96376; J2270; J2930; J7512; J7613; J7620; Q9967; 99285-25

== ENCOUNTER 2017-04-26 06:51 | Emergency (ER) | payer BC ==
[2017-04-26] MEDS: predniSONE 10 MG TABLET PO ×2 (07:35)
[2017-04-26] MEDS: IPRATRPIUM/ALBUTEROL 0.5/2.5MG 3 ML NEBU. NEB ×2 (08:19)
[2017-04-26 09:32] LABS: URINE HCG POC HCG NEGATIVE (Negative)
[2017-04-26] MEDS: ALBUTEROL SULFATE 2.5 MG/3 ML NEBU. CONT NEB ×2 (09:36)
[2017-04-26] MEDS: ONDANSETRON ODT 4 MG TAB.RAPDIS. PO ×2 (11:04)
[2017-04-26] MEDS: IV NORMAL SALINE 1000ML BAG 1,000 ML IV ×2 (11:14)
[2017-04-26 11:17] LABS: ADD MAN DIFF? NO
[2017-04-26 11:19] LABS: BASO % 1 % (0-3); EOS % 1 % (0-3); HEMATOCRIT 45.2 % (36.0-47.0); HEMOGLOBIN 14.9 g/dL (12.0-15.5); LYMPH # 0.9 x10^3/uL (1.0-4.8); LYMPH % 13 % (24-48); MEAN CORPUSCULAR HEMOGLOBIN 29 pg (25-35); MEAN CORPUSCULAR HGB CONC 33 g/dL (31-37); MEAN CORPUSCULAR VOLUME 87 fL (79-100); MONO # 0.5 x10^3/uL (0.0-1.1); MONO % 7 % (0-9); NEUT # 5.8 x10^3uL (1.8-7.7); NEUT % 79 % (31-73); PLATELET COUNT 310 x10^3/uL (140-400); RED CELL DISTRIBUTION WIDTH 13.9 % (11.5-14.5); WHITE BLOOD COUNT 7.3 x10^3/uL (4.0-11.0)
[2017-04-26 11:31] LABS: ANION GAP 12 (6-14); BLOOD UREA NITROGEN 13 mg/dL (7-20); BUN/CREATININE RATIO 16 (6-20); CALCIUM 9.9 mg/dL (8.5-10.1); CARBON DIOXIDE 25 mmol/L (21-32); CHLORIDE 102 mmol/L (98-107); CREATININE 0.8 mg/dL (0.6-1.0); GFR 101.9; GLUCOSE 104 mg/dL (70-99); POTASSIUM 3.7 mmol/L (3.5-5.1); SODIUM 139 mmol/L (136-145)
[2017-04-26 11:37] LABS: ALBUMIN 3.9 g/dL (3.4-5.0); ALBUMIN/GLOBULIN RATIO 0.9 (1.0-1.7); ALK PHOS 70 U/L (46-116); ALT (SGPT) 28 U/L (14-59); AST (SGOT) 24 U/L (15-37); TOTAL BILIRUBIN 0.2 mg/dL (0.2-1.0); TOTAL PROTEIN 8.2 g/dL (6.4-8.2)
[2017-04-26] MEDS: KETOROLAC 30 MG/ML INJ. IV ×2 (12:24)
[2017-04-26 12:43] LABS: INFLUENZA A PATIENT NEGATIVE (NEGATIVE); INFLUENZA B PATIENT NEGATIVE (NEGATIVE); OBC FLU VALID
== END 2017-04-26 13:49 | disposition home or self-care (01) ==
LOC: ER 06:51
DX: J45.901 Unspecified asthma with (acute) exacerbation (principal); J20.9 Acute bronchitis, unspecified; I12.9 Hypertensive chronic kidney disease with stage 1 through stage 4 chronic kidney disease, or unspecified chronic kidney disease; N18.9 Chronic kidney disease, unspecified; Z90.49 Acquired absence of other specified parts of digestive tract; Z87.01 Personal history of pneumonia (recurrent); Z79.899 Other long term (current) drug therapy; Z88.8 Allergy status to other drugs, medicaments and biological substances; Z88.2 Allergy status to sulfonamides; Z88.1 Allergy status to other antibiotic agents
CPT/HCPCS: 36415; 71046; 80053; 81025; 85025; 87804; 87804-59; 94640; 94644; 96361; 96374; 99285-25; J1885; J7030; J7512; J7613; J7620; Q0162

== ENCOUNTER 2017-08-13 19:43 | Emergency (ER) | payer BC ==
[2017-08-13 20:25] LABS: URINE HCG POC HCG NEGATIVE (Negative)
[2017-08-13] MEDS: IPRATRPIUM/ALBUTEROL 0.5/2.5MG 3 ML NEBU. NEB (20:39)
[2017-08-13 20:55] LABS: ADD MAN DIFF? NO
[2017-08-13 20:57] LABS: BASO % 1 % (0-3); EOS # 0.1 x10^3/uL (0.0-0.7); EOS % 1 % (0-3); HEMATOCRIT 44.8 % (36.0-47.0); LYMPH # 1.1 x10^3/uL (1.0-4.8); LYMPH % 15 % (24-48); MEAN CORPUSCULAR HEMOGLOBIN 29 pg (25-35); MEAN CORPUSCULAR HGB CONC 33 g/dL (31-37); MEAN CORPUSCULAR VOLUME 87 fL (79-100); MONO # 0.7 x10^3/uL (0.0-1.1); MONO % 9 % (0-9); NEUT # 5.6 x10^3uL (1.8-7.7); NEUT % 74 % (31-73); PLATELET COUNT 291 x10^3/uL (140-400); RED BLOOD COUNT 5.18 x10^6/uL (3.50-5.40); RED CELL DISTRIBUTION WIDTH 14.1 % (11.5-14.5); WHITE BLOOD COUNT 7.5 x10^3/uL (4.0-11.0)
[2017-08-13] MEDS: IV NORMAL SALINE 1000ML BAG 1,000 ML IV ×2 (21:00→23:30)
[2017-08-13 21:07] LABS: ANION GAP 12 (6-14); BLOOD UREA NITROGEN 11 mg/dL (7-20); BUN/CREATININE RATIO 14 (6-20); CALCIUM 9.1 mg/dL (8.5-10.1); CARBON DIOXIDE 26 mmol/L (21-32); CHLORIDE 102 mmol/L (98-107); CREATININE 0.8 mg/dL (0.6-1.0); GFR 101.9; GLUCOSE 106 mg/dL (70-99); POTASSIUM 4.2 mmol/L (3.5-5.1); SODIUM 140 mmol/L (136-145)
[2017-08-13] MEDS: ACETAMINOPHEN 500 MG TABLET PO (21:08)
[2017-08-13 21:11] LABS: ALBUMIN 3.7 g/dL (3.4-5.0); ALBUMIN/GLOBULIN RATIO 0.8 (1.0-1.7); ALK PHOS 86 U/L (46-116); ALT (SGPT) 20 U/L (14-59); AST (SGOT) 18 U/L (15-37); TOTAL BILIRUBIN 0.2 mg/dL (0.2-1.0); TOTAL PROTEIN 8.4 g/dL (6.4-8.2)
[2017-08-13 21:14] LABS: LACTIC ACID 2.6 mmol/L (0.4-2.0)
[2017-08-13] MEDS: IBUPROFEN 800 MG TABLET. PO (22:50)
[2017-08-13] MEDS: predniSONE 20 MG TABLET PO (22:51)
[2017-08-13] MEDS ORDERED: ACETAMINOPHEN 500 MG TABLET PO (23:00)
[2017-08-14] MEDS: ALBUTEROL SULFATE 2.5 MG/3 ML NEBU. NEB (00:10)
== END 2017-08-14 00:36 | disposition home or self-care (01) ==
LOC: ER 08-14 00:36
DX: J20.9 Acute bronchitis, unspecified (principal); I12.9 Hypertensive chronic kidney disease with stage 1 through stage 4 chronic kidney disease, or unspecified chronic kidney disease; N18.9 Chronic kidney disease, unspecified; Z90.49 Acquired absence of other specified parts of digestive tract; Z90.89 Acquired absence of other organs; Z79.899 Other long term (current) drug therapy; Z79.1 Long term (current) use of non-steroidal anti-inflammatories (NSAID); Z88.1 Allergy status to other antibiotic agents; Z88.2 Allergy status to sulfonamides; Z88.8 Allergy status to other drugs, medicaments and biological substances
CPT/HCPCS: 36415; 71046; 80053; 81025; 83605; 85025; 94640; 99285; J7030; J7512; J7613; J7620

== ENCOUNTER 2017-08-25 12:53 | Emergency (ER) | payer BC | END 2017-08-25 16:45 | disposition home or self-care (01) | LOC: ER 12:53 | DX: I82.612 Acute embolism and thrombosis of superficial veins of left upper extremity (principal); J45.909 Unspecified asthma, uncomplicated; I10 Essential (primary) hypertension; Z90.49 Acquired absence of other specified parts of digestive tract; Z87.442 Personal history of urinary calculi; Z88.2 Allergy status to sulfonamides; Z88.1 Allergy status to other antibiotic agents; Z88.8 Allergy status to other drugs, medicaments and biological substances | CPT/HCPCS: 93971; 99284 ==

== ENCOUNTER 2018-03-16 21:19 | Emergency (ER) | payer BC ==
[~2018-03-16] VITALS: Ht 182.9 cm; Wt 186.9 kg
[~2018-03-16 21:19] MED LIST changes: +ALBU2.5V8 INH; +AZIT250T PO; +CYCL5TAB PO; -GABA-586 PO; +GABA300C18 PO; +HYDR-2765 PO; +HYDR-2869 PO; +HYDR-3164 PO; -HYDR-971 PO; -HYDR12.53 PO; +HYDR12.575 PO; +HYDR5SUS PO; +IBUP-1060 PO; +LEVO500T59 PO; +LOSA-73 PO; -LOSA50TA6 PO; -METO100T2 PO; +METO100T7 PO; +METO25TA4 PO; +PRED20TA PO; -PROAIR HFA8.5 GM INH
[2018-03-16] MEDS ORDERED: ONDANSETRON PF 4 MG/2 ML VIAL. IV ONE (22:30)
[2018-03-16] MEDS ORDERED: IV NORMAL SALINE 1000ML BAG 1,000 ML IV ONE (22:30)
--- NOTE | 2018-03-16 22:33 | PHYS DOC ---
Past Medical History Past Medical History: Asthma, Bronchitis, Hypertension, IBS, Pneumonia, Renal Failure, Urolithiasis, UTI, Other Additional Past Medical Histor: BACK PAIN Past Surgical History: Cholecystectomy, , Tonsillectomy, Other Additional Past Surgical Histo: adenoidectomy Alcohol Use: None Drug Use: None Adult General Chief Complaint Chief Complaint: FLU SYMPTOM HPI HPI Patient is a 32 year old AA female who presents to the ER with complaints of a fever, non-productive cough, shortness of breath, fatigue, nausea, and vomiting for the last week. Pt states she last measured a fever last night and has not taken her temperature today but has felt hot and been chilling. She reports at least 5-6 episodes of vomiting and diarrhea today. PT states she gets pneumonia every year and this is how she feels. She reports shortness of breath with activity and when supine. Pt states she can hear herself wheeze whenever she lies down. At this time she denies any back pain and reports epigastric pain. She denies any ear pain or sore throat. States she feels congested. Review of Systems Review of Systems Constitutional: See HPI HENT: Denies ear pain or sore throat; see HPI Respiratory: See HPI Cardiovascular: No additional information not addressed in HPI [] GI: See HPI : Denies dysuria or frequency Musculoskeletal: Denies back pain or joint pain; reports body aches Integument: Denies rash or skin lesions [] Neurologic: Denies headache, focal weakness or sensory changes [] Complete systems were reviewed and found to be within normal limits, except as documented in this note. Current Medications Current Medications Current Medications Medications (Trade) Dose Ordered Sig/Arturo Start Time Stop Time Status Last Admin Dose Admin Albuterol Sulfate (Ventolin Neb Soln) 2.5 mg 1X ONCE 03/16/18 23:00 03/16/18 23:01 DC Albuterol/ Ipratropium (Duoneb) 3 ml 1X ONCE 03/16/18 22:45 03/16/18 22:52 DC 03/16/18 22:47 3 ML Doxycycline Hyclate (Vibra-Tab) 100 mg 1X ONCE 03/17/18 01:00 03/17/18 01:01 DC 03/17/18 00:52 100 MG Ondansetron HCl (Zofran Odt) 4 mg STK-MED ONCE 03/17/18 00:50 03/17/18 00:52 DC Ondansetron HCl (Zofran) 4 mg 1X ONCE 03/16/18 22:30 03/16/18 22:31 DC 03/16/18 22:50 4 MG Sodium Chloride 1,000 ml @ 1,000 mls/hr 1X ONCE 03/16/18 22:30 03/16/18 23:29 DC 03/16/18 22:50 1,000 MLS/HR Allergies Allergies Allergies Coded Allergies Type Severity Reaction Last Updated Verified loperamide Allergy Severe rash, tongue swelling 11/14/16 Yes Sulfa (Sulfonamide Antibiotics) Allergy Intermediate Hives 11/14/16 Yes amoxicillin Allergy Intermediate Hives 11/14/16 Yes vancomycin Allergy Intermediate Hives 11/14/16 Yes Physical Exam Physical Exam Constitutional: Well developed, well nourished, mild distress, ill appearance, obese. [] HENT: Normocephalic, atraumatic, bilateral external ears normal, oropharynx dry , nose normal. [] Eyes: conjunctiva normal, no discharge. [] Neck: Normal range of motion, no stridor. [] Cardiovascular:Heart rate regular rhythm, no murmur [] Lungs & Thorax: Bilateral breath sounds diminished with expiratory wheezes throughout Abdomen: Bowel sounds normal, soft, epigastric tenderness, no masses, no pulsatile masses. [] Skin: Warm, dry, no erythema, no rash. [] Extremities: No cyanosis, no clubbing, no edema. [] Neurologic: Alert and oriented X 3, normal motor function, normal sensory function, no focal deficits noted. [] Psychologic: Affect normal, judgement normal, mood normal. [] Current Patient Data Vital Signs Vital Signs Date Time Temp Pulse Resp B/P (MAP) Pulse Ox O2 Delivery O2 Flow Rate FiO2 03/17/18 00:38 95 18 145/70 (95) 98 Room Air 03/16/18 22:10 98.4 98.4 Lab Values Laboratory Tests Test 03/16/18 22:07 03/16/18 22:45 03/16/18 23:15 03/16/18 23:20 Influenza Type A Antigen Negative (NEGATIVE) Influenza Type B Antigen Negative (NEGATIVE) White Blood Count 7.1 x10^3/uL (4.0-11.0) Red Blood Count 4.99 x10^6/uL (3.50-5.40) Hemoglobin 14.8 g/dL (12.0-15.5) Hematocrit 43.2 % (36.0-47.0) Mean Corpuscular Volume 86 fL (79-100) Mean Corpuscular Hemoglobin 30 pg (25-35) Mean Corpuscular Hemoglobin Concent 34 g/dL (31-37) Red Cell Distribution Width 13.7 % (11.5-14.5) Platelet Count 289 x10^3/uL (140-400) Neutrophils (%) (Auto) 60 % (31-73) Lymphocytes (%) (Auto) 27 % (24-48) Monocytes (%) (Auto) 9 % (0-9) Eosinophils (%) (Auto) 3 % (0-3) Basophils (%) (Auto) 1 % (0-3) Neutrophils # (Auto) 4.3 x10^3uL (1.8-7.7) Lymphocytes # (Auto) 1.9 x10^3/uL (1.0-4.8) Monocytes # (Auto) 0.6 x10^3/uL (0.0-1.1) Eosinophils # (Auto) 0.2 x10^3/uL (0.0-0.7) Basophils # (Auto) 0.1 x10^3/uL (0.0-0.2) Sodium Level 142 mmol/L (136-145) Potassium Level 3.6 mmol/L (3.5-5.1) Chloride Level 105 mmol/L (98-107) Carbon Dioxide Level 25 mmol/L (21-32) Anion Gap 12 (6-14) Blood Urea Nitrogen 12 mg/dL (7-20) Creatinine 0.8 mg/dL (0.6-1.0) Estimated GFR (Cockcroft-Gault) 101.2 BUN/Creatinine Ratio 15 (6-20) Glucose Level 121 mg/dL (70-99) H Lactic Acid Level 2.2 mmol/L (0.4-2.0) H Calcium Level 9.5 mg/dL (8.5-10.1) Magnesium Level 1.9 mg/dL (1.8-2.4) Total Bilirubin 0.2 mg/dL (0.2-1.0) Aspartate Amino Transferase (AST) 20 U/L (15-37) Alanine Aminotransferase (ALT) 20 U/L (14-59) Alkaline Phosphatase 69 U/L (46-116) Total Protein 7.5 g/dL (6.4-8.2) Albumin 3.3 g/dL (3.4-5.0) L Albumin/Globulin Ratio 0.8 (1.0-1.7) L Lipase 115 U/L (73-393) Urine Collection Type Unknown Urine Color Yellow Urine Clarity Clear Urine pH 6.0 Urine Specific [place] >=1.030 Urine Protein Negative mg/dL (NEG-TRACE) Urine Glucose (UA) Negative mg/dL (NEG) Urine Ketones (Stick) Negative mg/dL (NEG) Urine Blood Large (NEG) Urine Nitrite Negative (NEG) Urine Bilirubin Negative (NEG) Urine Urobilinogen Dipstick 0.2 mg/dL (0.2 mg/dL) Urine Leukocyte Esterase Negative (NEG) Urine RBC 1-2 /HPF (0-2) Urine WBC 1-4 /HPF (0-4) Urine Squamous Epithelial Cells Many /LPF Urine Bacteria Many /HPF (0-FEW) Urine Mucus Marked /LPF POC Urine HCG, Qualitative Hcg negative (Negative) Laboratory Tests 03/16/18 22:45 Laboratory Tests 03/16/18 22:45 EKG EKG [] Radiology/Procedures Radiology/Procedures [] Course & Med Decision Making Course & Med Decision Making Pertinent Labs and Imaging studies reviewed. (See chart for details) 2250- report to Dr. Miranda, pending labs and xray. Advised of physical exam findings, medications given, and pending orders. [] cxr neg i re-eval pt, she is stable vitals look good rx for doxy prednisone tessalon and zofran given likely bronchitis Dragon Disclaimer Dragon Disclaimer This electronic medical record was generated, in whole or in part, using a voice recognition dictation system. Departure Departure Impression: Primary Impression: Acute bronchitis Disposition: 01 HOME, SELF-CARE Condition: STABLE Referrals: Lore ERICKSON MD (PCP) Scripts Benzonatate (TESSALON PERLE) 100 Mg Capsule 1 CAP PO TID, #21 CAP Prov: DIONNA MIRANDA MD 03/17/18 Prednisone (PREDNISONE) 50 Mg Tablet 1 TAB PO DAILY, #5 TAB Prov: DIONNA MIRANDA MD 03/17/18 Doxycycline Hyclate (DOXYCYCLINE HYCLATE) 100 Mg Capsule 1 CAP PO BID, #20 CAP Prov: DIONNA MIRANDA MD 03/17/18 Ondansetron Hcl (ZOFRAN) 4 Mg Tablet 4 MG PO PRN TID PRN for NAUSEA/VOMITING, #15 nausea/vomiting Prov: DIONNA MIRANDA MD 03/17/18 MARCELA ZAMORA APRN Mar 16, 2018 22:33 DIONNA MIRANDA MD Mar 17, 2018 03:05
[2018-03-16 22:36] LABS: INFLUENZA A PATIENT NEGATIVE (NEGATIVE); INFLUENZA B PATIENT NEGATIVE (NEGATIVE)
[2018-03-16] MEDS ORDERED: IPRATRPIUM/ALBUTEROL 0.5/2.5MG 3 ML NEBU. NEB ONE (22:45)
[2018-03-16 22:54] LABS: BASO # 0.1 x10^3/uL (0.0-0.2); BASO % 1 % (0-3); EOS # 0.2 x10^3/uL (0.0-0.7); EOS % 3 % (0-3); HEMATOCRIT 43.2 % (36.0-47.0); HEMOGLOBIN 14.8 g/dL (12.0-15.5); LYMPH # 1.9 x10^3/uL (1.0-4.8); LYMPH % 27 % (24-48); MEAN CORPUSCULAR HEMOGLOBIN 30 pg (25-35); MEAN CORPUSCULAR HGB CONC 34 g/dL (31-37); MEAN CORPUSCULAR VOLUME 86 fL (79-100); MONO # 0.6 x10^3/uL (0.0-1.1); MONO % 9 % (0-9); NEUT # 4.3 x10^3uL (1.8-7.7); NEUT % 60 % (31-73); PLATELET COUNT 289 x10^3/uL (140-400); RED BLOOD COUNT 4.99 x10^6/uL (3.50-5.40); RED CELL DISTRIBUTION WIDTH 13.7 % (11.5-14.5); WHITE BLOOD COUNT 7.1 x10^3/uL (4.0-11.0)
[2018-03-16] MEDS ORDERED: ALBUTEROL SULFATE 2.5 MG/3 ML NEBU. NEB ONE (23:00)
[2018-03-16 23:12] LABS: CALCIUM 9.5 mg/dL (8.5-10.1); CREATININE 0.8 mg/dL (0.6-1.0); GFR 101.2; POTASSIUM 3.6 mmol/L (3.5-5.1)
[2018-03-16 23:18] LABS: ALBUMIN 3.3 g/dL (3.4-5.0); ALBUMIN/GLOBULIN RATIO 0.8 (1.0-1.7); MAGNESIUM 1.9 mg/dL (1.8-2.4); TOTAL BILIRUBIN 0.2 mg/dL (0.2-1.0); TOTAL PROTEIN 7.5 g/dL (6.4-8.2)
[2018-03-16 23:27] LABS: BILIRUBIN,URINE NEGATIVE (NEG); CLARITY,URINE CLEAR; COLOR,URINE YELLOW; NITRITE,URINE NEGATIVE (NEG); PROTEIN,URINE NEGATIVE (NEG-TRACE); UROBILINOGEN,URINE 0.2 mg/dL (0.2 mg/dL)
[2018-03-16 23:35] LABS: BACTERIA,URINE MANY /HPF (0-FEW); SQUAMOUS EPITHELIAL CELL,UR MANY /LPF
[2018-03-17 00:38] VITALS: BP 145/70
[2018-03-17] MEDS ORDERED: ONDA4TAB7 PO (00:42)
[2018-03-17] MEDS ORDERED: DOXY100C2 PO (00:42)
[2018-03-17] MEDS ORDERED: ONDANSETRON ODT 4 MG TAB.RAPDIS. ONE (00:50)
--- NOTE | 2018-03-17 00:54 | RAD ---
Chest PA and lateral 03/16/2018. Reason for exam: Cough and fever for one week. Comparison is made with a study of 08/13/2017. No new infiltrate or effusion is seen. Heart size and pulmonary vascularity appear normal. IMPRESSION: No acute abnormality. Electronically signed by: Vikash De La Cruz Jr., MD (03/17/2018 12:50 AM) [facility]
[2018-03-17] MEDS ORDERED: BENZ100C PO (00:58)
[2018-03-17] MEDS ORDERED: PRED50TA PO (00:58)
[2018-03-17] MEDS ORDERED: DOXYCYCLINE HYCLATE 100 MG TABLET PO ONE (01:00)
[2018-03-17] MEDS ORDERED: ONDANSETRON ODT 4 MG TAB.RAPDIS. PO ONE (01:00)
== END 2018-03-17 01:00 | disposition home or self-care (01) ==
LOC: ER 21:19
DX: J20.9 Acute bronchitis, unspecified (principal); R11.2 Nausea with vomiting, unspecified; R19.7 Diarrhea, unspecified; R10.13 Epigastric pain; I10 Essential (primary) hypertension; K58.9 Irritable bowel syndrome, unspecified; N28.89 Other specified disorders of kidney and ureter; Z87.440 Personal history of urinary (tract) infections; Z90.49 Acquired absence of other specified parts of digestive tract; Z98.890 Other specified postprocedural states; Z88.1 Allergy status to other antibiotic agents; Z88.8 Allergy status to other drugs, medicaments and biological substances
CPT/HCPCS: 36415; 71046; 80053; 81001; 81025; 83605; 83690; 83735; 85025; 87086; 87804; 94640; 96361; 96374; 99284; J2405; J7030; J7620; Q0162

== ENCOUNTER 2020-09-21 15:49 | Emergency (ER) | payer SELFPAY ==
[~2020-09-21] VITALS: Ht 182.9 cm; Wt 182.7 kg
[~2020-09-21 15:49] MED LIST changes: +DOXY100C2 PO; -HYDR50TA6 PO; +HYDR50TA9 PO; +MONT10TA49 PO; -MONT10TA9 PO; +ONDA4TAB7 PO; -PANT40TA3 PO; +PANT40TA77 PO; -TIZA4TAB PO; +TIZA4TAB2 PO
--- NOTE | 2020-09-21 16:23 | PHYS DOC ---
Past Medical History Past Medical History: Asthma, Bronchitis, Hypertension, IBS, Pneumonia, Renal Failure, Urolithiasis, UTI, Other Additional Past Medical Histor: BACK PAIN (JOSÉ BEGUM DO) Past Surgical History: Cholecystectomy, , Tonsillectomy, Other Additional Past Surgical Histo: adenoidectomy (JOSÉ BEGUM DO) Smoking Status: Current Every Day Smoker Alcohol Use: None Drug Use: None (JOSÉ BEGUM DO) General Adult HPI: HPI: Patient is a 34-year-old female presenting for symptomatic Covid. Reports she initially started getting symptomatic 11 days ago, was subsequently tested 5 days ago in outpatient setting and confirmed as positive. Reports she lives at home and her x2 small children are also positive. Denies any upper respiratory symptoms but admits she lost her sense of taste and smell 4 days ago and has had ongoing nausea and vomit for past 72 hours. Patient has history of asthma and has prescribed albuterol inhaler, she has been using this without significant relief. Any p.o. intake makes her symptoms of nausea and subsequent emesis worse. Today she started becoming lightheaded and dizzy which she contributes to poor p.o. intake and he hydration prompting her to come in for evaluation. Denies any other medical issues besides asthma, no fever, vision changes, ripping or tearing sensation in chest, productive cough, urinary symptoms. She did not receive her COVID-19 vaccinations. (JOSÉ BEGUM DO) Review of Systems: Review of Systems: Fourteen body systems of review of systems have been reviewed. See HPI for pertinent positives and negative responses, other araya all other systems are negative, non-pertinent or non-contributory (JOSÉ BEGUM DO) Heart Score: C/O Chest Pain: No HEART Score for Chest Pain: HEART Score for Chest Pain Response (Comments) Value History Moderately Suspicious 1 ECG Normal 0 Age < 45 0 Risk Factors 1 or 2 Risk Factors 1 Total 2 Risk Factors: Risk Factors: DM, Current or recent (<one month) smoker, HTN, HLP, family history of CAD, obesity. Risk Scores: Score 0 - 3: 2.5% MACE over next 6 weeks - Discharge Home Score 4 - 6: 20.3% MACE over next 6 weeks - Admit for Clinical Observation Score 7 - 10: 72.7% MACE over next 6 weeks - Early Invasive Strategies (JOSÉ BEGUM DO) Allergies: Allergies: Allergies Coded Allergies Type Severity Reaction Last Updated Verified loperamide Allergy Severe rash, tongue swelling 11/14/16 Yes Sulfa (Sulfonamide Antibiotics) Allergy Intermediate Hives 11/14/16 Yes amoxicillin Allergy Intermediate Hives 11/14/16 Yes vancomycin Allergy Intermediate Hives 11/14/16 Yes (JOSÉ EBGUM DO) Physical Exam: PE: Constitutional: Well developed, well nourished, no acute distress, non-toxic appearance. HENT: Normocephalic, atraumatic, bilateral external ears normal, oropharynx moist, no oral exudates, nose normal. Eyes: PERRLA, EOMI, conjunctiva normal, no discharge. Neck: Normal range of motion, no tenderness, supple, no stridor. Cardiovascular: Heart rate regular, sinus rhythm, no murmurs rubs or gallops Lungs & Thorax: Bilateral breath sounds clear to auscultation Abdomen: Bowel sounds normal, soft, no tenderness, no masses, no pulsatile masses. Nonsurgical abdomen, no peritoneal signs Skin: Warm, dry, no erythema, no rash. Back: No tenderness, no CVA tenderness. Extremities: No tenderness, no cyanosis, no clubbing, ROM intact, no edema. Neurologic: Alert and oriented X 3, grossly normal motor & sensory function, no focal deficits noted. Psychologic: Affect normal, judgement normal, mood normal. (JOSÉ BEGUM DO) Current Patient Data: Labs: Laboratory Tests Test 09/21/20 17:50 09/21/20 18:41 White Blood Count 4.5 x10^3/uL Red Blood Count 5.65 x10^6/uL Hemoglobin 16.5 g/dL Hematocrit 48.8 % Mean Corpuscular Volume 86 fL Mean Corpuscular Hemoglobin 29 pg Mean Corpuscular Hemoglobin Concent 34 g/dL Red Cell Distribution Width 13.6 % Platelet Count 299 x10^3/uL Neutrophils (%) (Auto) 41 % Lymphocytes (%) (Auto) 43 % Monocytes (%) (Auto) 12 % Eosinophils (%) (Auto) 3 % Basophils (%) (Auto) 1 % Neutrophils # (Auto) 1.8 x10^3/uL Lymphocytes # (Auto) 1.9 x10^3/uL Monocytes # (Auto) 0.5 x10^3/uL Eosinophils # (Auto) 0.1 x10^3/uL Basophils # (Auto) 0.0 x10^3/uL Sodium Level 141 mmol/L Potassium Level 3.7 mmol/L Chloride Level 103 mmol/L Carbon Dioxide Level 27 mmol/L Anion Gap 11 Blood Urea Nitrogen 8 mg/dL Creatinine 0.9 mg/dL Estimated GFR (Cockcroft-Gault) 87.3 BUN/Creatinine Ratio 9 Glucose Level 112 mg/dL Lactic Acid Level 1.7 mmol/L Calcium Level 9.4 mg/dL Total Bilirubin 0.4 mg/dL Aspartate Amino Transf (AST/SGOT) 47 U/L Alanine Aminotransferase (ALT/SGPT) 61 U/L Alkaline Phosphatase 83 U/L Troponin I Quantitative < 0.017 ng/mL Total Protein 7.9 g/dL Albumin 3.9 g/dL Albumin/Globulin Ratio 1.0 Urine Collection Type Unknown Urine Color Dk yellow Urine Clarity Turbid Urine pH 6.0 Urine Specific Cortez >=1.030 Urine Protein >=300 mg/dL Urine Glucose (UA) Negative mg/dL Urine Ketones (Stick) 15 mg/dL Urine Blood Negative Urine Nitrite Negative Urine Bilirubin Moderate Urine Urobilinogen Dipstick 1.0 mg/dL Urine Leukocyte Esterase Small Urine RBC 0 /HPF Urine WBC 5-10 /HPF Urine Squamous Epithelial Cells Many /LPF Urine Bacteria Many /HPF Urine Hyaline Casts Many /HPF Urine Mucus Marked /LPF Current Medications Medications (Trade) Dose Ordered Sig/Arturo Route PRN Reason Start Time Stop Time Status Last Admin Dose Admin Sodium Chloride 1,000 ml @ 1,000 mls/hr 1X ONCE IV 09/21/20 16:30 09/21/20 17:29 DC 09/21/20 17:38 Aspirin (Aspirin Chewable) 324 mg 1X ONCE PO 09/21/20 16:30 09/21/20 16:34 DC 09/21/20 17:39 Nicardipine HCl 50 mg/Sodium Chloride 250 ml @ 25 mls/hr CONT PRN IV SEE I/O RECORD 09/21/20 17:15 09/21/20 17:43 DC Iohexol (Omnipaque 350 Mg/ml) 100 ml 1X ONCE IV 09/21/20 19:00 09/21/20 19:01 Cancel Info (CONTRAST GIVEN -- Rx MONITORING) 1 each PRN DAILY PRN MC SEE COMMENTS 09/21/20 19:00 09/21/20 21:19 DC Iohexol (Omnipaque 300 Mg/ml) 75 ml 1X ONCE IV 09/21/20 19:15 09/21/20 19:35 DC 09/21/20 19:33 Ketorolac Tromethamine (Toradol 30mg Vial) 30 mg 1X ONCE IVP 09/21/20 20:15 09/21/20 20:16 DC 09/21/20 20:18 Ondansetron HCl (Zofran) 4 mg 1X ONCE IVP 09/21/20 20:15 09/21/20 20:16 DC 09/21/20 20:18 Vital Signs: Vital Signs Date Time Temp Pulse Resp B/P (MAP) Pulse Ox O2 Delivery O2 Flow Rate FiO2 09/21/20 16:30 124 26 177/124 (141) 96 Room Air 09/21/20 17:15 2.0 09/21/20 20:51 98.1 98.1 Vital Signs Date Time Temp Pulse Resp B/P (MAP) Pulse Ox O2 Delivery O2 Flow Rate FiO2 09/21/20 21:00 86 104/51 (68) 100 Room Air 09/21/20 20:51 98.1 98.1 09/21/20 20:30 14 2.0 (JOSÉ BEGUM DO) EKG: EKG: EKG ordered and interpreted by myself at 1643 hrs. as sinus tachycardia at 110 bpm, unremarkable intervals, no axis deviation, no acute ischemic findings, no STEMI (JOSÉ BEGUM DO) Radiology/Procedures: Radiology/Procedures: AP chest. HISTORY: Short of breath, Covid-19 positive AP view was taken of the chest. Comparison is made with a prior study. Patient's not taken a deep inspiration. There is no effusion. Heart is normal in size. There are no confluent infiltrates. IMPRESSION: 1. No acute infiltrates at this time. Electronically signed by: Billy Andrea MD (09/21/2020 5:07 PM) [facility] /////////////////// CT chest with contrast. HISTORY: Short of breath, Covid-19 CT scan the chest was done using 75 mL Omnipaque 300 contrast. Thyroid is homogeneous. Mediastinal lymph nodes are mildly prominent. There is no effusion. Hilar lymph nodes are also mildly prominent. There is diffuse fatty change in the liver without a definite lesion. Spleen is unremarkable. Adrenal glands are normal. There are minimal bilateral areas of infiltrate. Atelectasis is possible. Study was not done using pulmonary embolus technique, there is no large central embolus. IMPRESSION: 1. Minimal infiltrates bilaterally nonspecific. 2. Hilar and mediastinal adenopathy etiology not determined. 3. No pleural effusion. 4. Fatty liver change. (JOSÉ BEGUM DO) Radiology/Procedures: [facility] [address] [place] [address] IMAGING REPORT Signed PATIENT: JUSTINA CORBETT ACCOUNT: [id number] : 1985 LOCATION: ER AGE: 34 SEX: F EXAM STATUS: REG ER ORD. PHYSICIAN: JOSÉ BEGUM DO REASON: shob, peytonid positive-ORDER CHANGED TO THIS BY ER DR PROCEDURE: CT CHEST W/CONTRAST CT chest with contrast. HISTORY: Short of breath, Covid-19 CT scan the chest was done using 75 mL Omnipaque 300 contrast. Thyroid is homogeneous. Mediastinal lymph nodes are mildly prominent. There is no effusion. Hilar lymph nodes are also mildly prominent. There is diffuse fatty change in the liver without a definite lesion. Spleen is unremarkable. Adrenal glands are normal. There are minimal bilateral areas of infiltrate. Atelectasis is possible. Study was not done using pulmonary embolus technique, there is no large central embolus. IMPRESSION: 1. Minimal infiltrates bilaterally nonspecific. 2. Hilar and mediastinal adenopathy etiology not determined. 3. No pleural effusion. 4. Fatty liver change. PQRS Compliance Statement: One or more of the following individualized dose reduction techniques were utilized for this examination: 1. Automated exposure control 2. Adjustment of the mA and/or kV according to patient size 3. Use of iterative reconstruction technique Electronically signed by: Billy Andrea MD (09/21/2020 8:10 PM) [facility] DICTATED and SIGNED BY: BILLY ANDREA MD DATE: 09/21/[id number] 0 (TINO THOMPSON DO) Course & Med Decision Making: Course & Med Decision Making Airway patent, increased work of breathing, IV access and vitals obtained concerning for tachycardia and tachypnea HPI and physical examination concerning for symptomatic Covid. Subsequent d iagnostic ER work-up ensued IV fluid rehydration started, pending work-up results at time of my shift and. I gave comprehensive signout to Dr. Thompson. Please defer to his notes regarding future care of patient while in ER setting (JOSÉ BEGUM DO) Course & Med Decision Making Patient is a 33-year-old female who had COVID-19 infection, present to ER due to nausea vomiting body aches cough fever and chills. Her oxygen saturation is 95% on room air, her lab work showed that she is slightly dehydrated. Patient was given IV fluid and antinausea medication. Patient felt much better. Patient will be discharged home with antinausea medication, recommend to call her doctor for follow-up as needed. (TINO THOMPSON DO) Dragon Disclaimer: Dragon Disclaimer: This electronic medical record was generated, in whole or in part, using a voice recognition dictation system. (JOSÉ BEGUM DO) Departure Departure Impression: Primary Impression: COVID-19 Additional Impression: Nausea & vomiting Disposition: 01 HOME / SELF CARE / HOMELESS Condition: IMPROVED Referrals: QUENTIN WONG MD (PCP) Follow up with your doctor this week for reevaluation Patient Instructions: Nausea and Vomiting, Viral Syndrome Additional Instructions: You have been tested for or diagnosed with COVID-19. It is an infection caused by a new type of coronavirus. COVID-19 will cause cold-like or mild flu symptoms in most. It can cause more severe symptoms like problems breathing in some. There is no treatment for COVID-19. The body will clear the infection over time. Self-care will help to ease discomfort. Steps to Take: Self-Care Rest as needed. Healthy habits may help you feel better. Steps include: Choose healthy foods including fruits and vegetables. Drink water throughout the day. Get plenty of sleep each night. If you smoke, try to quit. It may ease breathing. Avoid alcohol. Keep Others Healthy The virus can spread to others. Droplets are released every time you sneeze or cough. The droplets can get into the mouth, nose, or eyes of people near you and lead to infection. To lower the chances of spreading COVID-19 to others: Stay at home until your doctor has said it is safe to leave. If you tested positive this will mean staying isolated until both of the following are true: At least 7 days have passed since the start of illness. You are free of fever for at least 72 hours without the use of medicine. During this time: - Avoid public areas, events, or transportation. Do not return to work or school until your doctor has said it is safe to do so. - Call ahead if you need to go to a medical center. Let them know you may have COVID-19. It will help them guide you where to go. They may also ask you to wear a facemask when you come to the office. - If you call for emergency medical services, let them know you may have COVID- 19. While at home: - Try to avoid close contact with others. Stay about 6 feet away. - If possible, spend most of your time in a separate room from others. - Use a face mask if you will be in close contact with others such as sharing a room or vehicle. - Have someone wipe down common surfaces in the home. Use household position classification manager every day on areas like doorknobs, counters, or sinks. - Cough or sneeze into a tissue. Throw the tissue away right after use. If a tissue is not available, cough or sneeze into your elbow. - Wash your hands often. Wash them after sneezing or coughing. Use soap and water and wash for at least 20 seconds. Alcohol based hand cutch cleaner can be used if soap and water is not available. - Do not prepare food for others. Avoid sharing personal items like forks, spoons, or toothbrushes. - Avoid close contact with pets while you are sick. There is no evidence of the virus passing to pets. This is a safety step until more is known about this virus. Isolation can be frustrating. Social interaction can help. Keep in touch with friends and family through phone and tech options. You can still interact with others in your home, just keep a safe distance of about 6 feet. Follow-up: Your doctors office will check in with you to see if there are any changes in your health. You may be asked to keep track of symptoms to share with them. They will also let you know when you are clear to be in public again. Problems to Look Out For: Contact your doctor if your recovery is not going as you expect. Get emergency care if you have problems such as: - Trouble breathing - Nonstop chest pain or pressure - Changes in awareness, confusion, or problems waking - Lips or face have bluish color - Worsening of symptoms If you think you have an emergency, call for emergency medical services right away. As taken from [facility] Health Scripts Metoclopramide Hcl (REGLAN) 10 Mg Tablet 1 TAB PO QID PRN for NAUSEA for 5 Days, #20 TAB 0 Refills before food and bedtime Prov: TINO THOMPSON DO 09/21/20 JOSÉ BEGUM DO Sep 21, 2020 16:22 TINO THOMPSON DO Sep 21, 2020 20:55
[2020-09-21] MEDS ORDERED: ASPIRIN CHEWABLE 81 MG TABLET. PO ONE (16:30)
[2020-09-21] MEDS ORDERED: IV NORMAL SALINE 1000ML BAG 1,000 ML IV ONE (16:30)
--- NOTE | 2020-09-21 17:09 | RAD ---
AP chest. HISTORY: Short of breath, Covid-19 positive AP view was taken of the chest. Comparison is made with a prior study. Patient's not taken a deep ins piration. There is no effusion. Heart is normal in size. There are no confluent infiltrates. IMPRESSION: 1. No acute infiltrates at this time. Electronically signed by: Billy Andrea MD (09/21/2020 5:07 PM) [facility]
--- NOTE | 2020-09-21 17:47 | EKG ---
[facility] [address] [place] [address] Test Date: 2020-09-21 Test Time: 16:40:27 Pat Name: JUSTINA CORBETT Department: Room: Gender: F Binding Nicker: : 1985 Requested By: JOSÉ BEGUM Order Number: [id number] Reading MD: Darren Younger Measurements Intervals [place] Rate: 110 P: -10 NH: 130 QRS: 27 QRSD: 76 T: 38 QT: 342 QTc: 468 Interpretive Statements SINUS TACHYCARDIA Electronically Signed On 09-23-2020 11:56:56 CDT by Darren Younger
[2020-09-21 18:33] LABS: CALCIUM 9.4 mg/dL (8.5-10.1); CREATININE 0.9 mg/dL (0.6-1.0); GFR 87.3; POTASSIUM 3.7 mmol/L (3.5-5.1)
[2020-09-21 18:35] LABS: BASO % 1 % (0-3); EOS # 0.1 x10^3/uL (0.0-0.7); EOS % 3 % (0-3); HEMATOCRIT 48.8 % (36.0-47.0); HEMOGLOBIN 16.5 g/dL (12.0-15.5); LYMPH # 1.9 x10^3/uL (1.0-4.8); LYMPH % 43 % (24-48); MEAN CORPUSCULAR HEMOGLOBIN 29 pg (25-35); MEAN CORPUSCULAR HGB CONC 34 g/dL (31-37); MEAN CORPUSCULAR VOLUME 86 fL (79-100); MONO # 0.5 x10^3/uL (0.0-1.1); MONO % 12 % (0-9); NEUT # 1.8 x10^3/uL (1.8-7.7); NEUT % 41 % (31-73); PLATELET COUNT 299 x10^3/uL (140-400); RED BLOOD COUNT 5.65 x10^6/uL (3.50-5.40); RED CELL DISTRIBUTION WIDTH 13.6 % (11.5-14.5); WHITE BLOOD COUNT 4.5 x10^3/uL (4.0-11.0)
[2020-09-21 18:39] LABS: ALBUMIN 3.9 g/dL (3.4-5.0); TOTAL BILIRUBIN 0.4 mg/dL (0.2-1.0); TOTAL PROTEIN 7.9 g/dL (6.4-8.2)
[2020-09-21 18:50] LABS: BILIRUBIN,URINE MODERATE (NEG); CLARITY,URINE TURBID; NITRITE,URINE NEGATIVE (NEG); PROTEIN,URINE >=300 mg/dL (NEG-TRACE)
[2020-09-21 18:58] LABS: COLOR,URINE DK YELLOW
[2020-09-21 18:59] LABS: HYALINE CASTS, URINE MANY /HPF
[2020-09-21 19:00] LABS: BACTERIA,URINE MANY /HPF (0-FEW); RBC,URINE 0 /HPF (0-2)
[2020-09-21] MEDS ORDERED: IOHEXOL 350 MG/ML 100 ML VIAL. IV ONE (19:00)
[2020-09-21] MEDS ORDERED: CONTRAST GIVEN. MC PRN (19:00)
[2020-09-21] MEDS ORDERED: IOHEXOL 300 MG/ML 100ML VIAL. IV ONE (19:15)
--- NOTE | 2020-09-21 20:13 | RAD ---
CT chest with contrast. HISTORY: Short of breath, Covid-19 CT scan the chest was done using 75 mL Omnipaque 300 contrast. Thyroid is homogeneous. Mediastinal ly mph nodes are mildly prominent. There is no effusion. Hilar lymph nodes are also mildly prominent. Th ere is diffuse fatty change in the liver without a definite lesion. Spleen is unremarkable. Adrenal g lands are normal. There are minimal bilateral areas of infiltrate. Atelectasis is possible. Study was not done using pulmonary embolus technique, there is no large central embolus. IMPRESSION: 1. Minimal infiltrates bilaterally nonspecific. 2. Hilar and mediastinal adenopathy etiology not determined. 3. No pleural effusion. 4. Fatty liver change. PQRS Compliance Statement: One or more of the following individualized dose reduction techniques were utilized for this examinat ion: 1. Automated exposure control 2. Adjustment of the mA and/or kV according to patient size 3. Use of iterative reconstruction technique Electronically signed by: Billy Andrea MD (09/21/2020 8:10 PM) [facility]
[2020-09-21] MEDS ORDERED: KETOROLAC 30 MG/ML VIAL. IVP ONE (20:15)
[2020-09-21] MEDS ORDERED: ONDANSETRON PF 4 MG/2 ML VIAL. IVP ONE (20:15)
[2020-09-21] MEDS ORDERED: METO10TA81 PO (20:55)
[2020-09-21 21:00] VITALS: BP 104/51
== END 2020-09-21 21:19 | disposition home or self-care (01) ==
LOC: ER 15:49
DX: U07.1 COVID-19 (principal); R11.2 Nausea with vomiting, unspecified; R42 Dizziness and giddiness; I12.9 Hypertensive chronic kidney disease with stage 1 through stage 4 chronic kidney disease, or unspecified chronic kidney disease; N18.9 Chronic kidney disease, unspecified; K58.9 Irritable bowel syndrome, unspecified; J45.909 Unspecified asthma, uncomplicated; F17.200 Nicotine dependence, unspecified, uncomplicated
CPT/HCPCS: 36415; 71045; 71260; 80053; 81001; 83605; 84484; 85025; 87040; 87086; 93005; 96361; 96374; 96375; 99285; J1885; J2405; J7030; Q9967

== ENCOUNTER → 2021-03-15 | Emergency (ER) | payer BC ==
[~2021-03-15] VITALS: Ht 182.9 cm; Wt 167.7 kg
[~2021-03-15] MED LIST changes: -DOXY100C2 PO; +DOXY100C3 PO; +METO10TA81 PO; +POTA-121 PO; -POTA20TA4 PO; +TIZA-75 PO; -TIZA4TAB2 PO
[2021-03-15 17:12] VITALS: BP 135/91
== END | disposition left against medical advice (07) ==
LOC: ER 16:01
DX: R10.9 Unspecified abdominal pain (principal); R11.0 Nausea; Z53.21 Procedure and treatment not carried out due to patient leaving prior to being seen by health care provider